=== PATIENT | male | born 1950 | race Caucasian/White ===

== ENCOUNTER 2016-11-08 13:05 | Emergency (ER) | payer MEDICARE, BC ==
[~2016-11-08] VITALS: Ht 177.8 cm; Wt 88.0 kg
--- NOTE | 2016-11-08 13:10 | NUR ---
PT CAME IN FOR INTERMITTENT LEFT SIDE CHEST DISCOMFORT SINCE YESTERDAY. NON-RADIATING. DENIES TRAUMA DESCRIBES IT A "VIBRATION LIKE" SENSATION. SKIN WNL. CLARK. AT FOR EVAL. SAFETY AND COMFORT MEASURES PROVIDED. WILL MONITOR.
[2016-11-08] MEDS ORDERED: NAPR500T PO (13:16)
[2016-11-08 13:47] LABS: BASOPHILS % (AUTO) 0.6 % (0.0-2.0); EOSINOPHILS # (AUTO) 0.1 /CMM (0.0-0.7); EOSINOPHILS % (AUTO) 3.8 % (0.0-6.0); HEMATOCRIT 37 % (39-51); HEMOGLOBIN 12.7 g/dL (13.5-17.5); LYMPHOCYTES # (AUTO) 1.2 /CMM (0.8-4.8); LYMPHOCYTES % (AUTO) 35.8 % (20.0-44.0); MEAN CORPUSCULAR HEMOGLOBIN 28 PG (26.0-33.0); MEAN CORPUSCULAR HGB CONC 34 g/dl (31.0-36.0); MEAN CORPUSCULAR VOLUME 82 fL (80-96); MONOCYTES # (AUTO) 0.2 /CMM (0.1-1.30); MONOCYTES % (AUTO) 4.8 % (2.0-12.0); NEUTROPHILS # (AUTO) 1.8 /CMM (1.8-8.9); PLATELET COUNT (AUTO) 236 /CMM (150-450); RDW COEFFICIENT OF VARIATION 13.8 (11.5-15.0); RED BLOOD CELL COUNT(AUTO) 4.52 MIL/uL (4.5-6.0); WHITE BLOOD COUNT (AUTO) 3.3 K/uL (4.3-11.0)
[2016-11-08 13:56] LABS: CALCIUM, SERUM 8.6 mg/dL (8.5-10.1); CARBON DIOXIDE 31 mmol/L (21-32); CHLORIDE 103 mmol/L (98-107); CREATININE 1.1 mg/dL (0.6-1.3); GFR 67 mL/min (>60); GLUCOSE 116 mg/dL (74-106); POTASSIUM 3.8 mmol/L (3.5-5.1); SODIUM SERUM 137 mmol/L (136-145); UREA NITROGEN, BLOOD 19 mg/dL (7-18)
[2016-11-08 14:02] VITALS: BP 123/73
[2016-11-08 14:06] LABS: TROPONIN I < 0.017 ng/mL (0.00-0.056)
[2016-11-08 14:07] LABS: INR 0.97 (0.87-1.13); PROTHROMBIN TIME 10.1 SECS (9.5-12.7)
--- NOTE | 2016-11-08 14:26 | NUR ---
IV removed. Catheter intact and site benign. Pressure and 4x4 applied to site. No bleeding noted.Patient discharged to home in stable condition. Written and verbal after care instructions given. Patient verbalizes understanding of instruction.
== END 2016-11-08 14:27 | disposition home or self-care (01) ==
LOC: ER 13:09
DX: R07.89 Other chest pain (principal); R42 Dizziness and giddiness; M19.90 Unspecified osteoarthritis, unspecified site
CPT/HCPCS: 36415; 71010; 80048; 84484; 85025; 85730; 93005 ×2; 99285; A4606; Z7610

== ENCOUNTER 2016-11-09 22:47 | Emergency (ER) | payer MEDICARE, OTHER ==
[~2016-11-09] VITALS: Ht 177.8 cm; Wt 81.6 kg
[~2016-11-09 22:47] MED LIST: NAPR500T PO
--- NOTE | 2016-11-09 23:10 | NUR ---
TO BED 7 A 66 YO MALE BIB RELATIVE WITH C/O LEFT UPPER BACK PAIN AT 10/10 S/P "TWISTING BACK AT HOME AND HEARING A SNAP." PER PATIENT, HE HAD A FALL YESTERDAY AND MAY HAVE HURT IT, PAIN IS WORSE TODAY. VSS. INITIATED COMFORT MEASURES. GOWNED. AWAITING FOR ER MD [place].
--- NOTE | 2016-11-10 00:36 | NUR ---
Patient discharged to home in stable condition. Written and verbal after care instructions given. Patient verbalizes understanding of instruction. Patient is ambulatory with steady gait, accompanied by family. No further complaints.
[2016-11-10] MEDS ORDERED: KETOROLAC TROMETHAMINE INJ 60 MG/2 ML VIAL IM ONE ×2 (00:44→01:00)
[2016-11-10 03:51] VITALS: BP 120/68
== END 2016-11-10 03:51 | disposition home or self-care (01) ==
LOC: ER 22:47
DX: M54.6 Pain in thoracic spine (principal); C79.51 Secondary malignant neoplasm of bone; M19.90 Unspecified osteoarthritis, unspecified site; Z85.79 Personal history of other malignant neoplasms of lymphoid, hematopoietic and related tissues
CPT/HCPCS: 71100-TC; A4606; J1885; Z7610